=== PATIENT | female | born 1960 | race Caucasian/White ===

== ENCOUNTER 2023-07-28 04:20 | Emergency (ER) | payer SELFPAY ==
[2023-07-28] MEDS ORDERED: Morphine 4 MG/ML Syringe IM ONE (04:44)
== END 2023-07-28 05:00 | disposition home or self-care (01) ==
LOC: JD.ED 04:20
DX: M54.50 Low back pain, unspecified (principal); E03.9 Hypothyroidism, unspecified; Z79.899 Other long term (current) drug therapy; Z86.16 Personal history of COVID-19
CPT/HCPCS: 96372; 99283; J2270

== ENCOUNTER 2023-08-05 06:53 | Emergency (ER) | payer SELFPAY ==
[2023-08-05] MEDS ORDERED: predniSONE 20 MG Tab PO ONE (07:32)
== END 2023-08-05 08:00 | disposition home or self-care (01) ==
LOC: JD.ED 06:53
DX: M54.50 Low back pain, unspecified (principal); E03.9 Hypothyroidism, unspecified; Z79.899 Other long term (current) drug therapy; Z86.16 Personal history of COVID-19
CPT/HCPCS: 99283; J7512